=== PATIENT | female | born 1945 | race Caucasian/White ===

== ENCOUNTER 2019-04-10 15:38 | Emergency (ER) | payer MEDICARE, OTHER ==
--- NOTE | 2019-04-10 16:39 | EDM.PDOC ---
ED HPI GENERAL MEDICAL PROBLEM - General Chief Complaint: Eye Problems Stated Complaint: EYE INJURY Time Seen by Provider: 04/10/19 15:50 Source of Information: Reports: Patient History Limitations: Reports: No Limitations - History of Present Illness INITIAL COMMENTS - FREE TEXT/NARRATIVE: Pt. presents to ER from clinic. Pt. states that she tripped at a gas station and fell, stiking the R side of her face on the concrete. She noticed progressive edema and ecchymosis to R orbit and went to [facility] and was evaluated. Pt. was subsequently sent to [facility] who had the patient come to the ER as it was close to closing time at the clinic. Pt. denies any LOC. She denies any neck or back pain. She states that he vision has diminished throughout the day due to swelling to the area. Denies any midface trauma. No obvious oral trauma or malocclusion. She denies and chest trauma. Her only other complaint is that of L anterior shoulder and L knee pain since the fall. Pt. denies any lightheadedness, chest pain, shortness of breath, or other symptoms prior to the fall. It appears to have been a mechanical fall due to tripping. Onset: Today Onset Date: 04/10/19 Location: Reports: Head, Face Quality: Reports: Ache, Throbbing Severity: Moderate Associated Symptoms: Denies: Nausea/Vomiting, Seizure - Related Data Allergies Allergy/AdvReac Type Severity Reaction Status Date / Time No Known Allergies Allergy Verified 04/10/19 15:39 Home Meds: Home Meds Albuterol [Proventil Neb Soln] 2.5 mg IH Q4H PRN 04/10/19 [History] Escitalopram [Lexapro] 10 mg PO BEDTIME 04/10/19 [History] Fluticasone/Salmeterol [Airduo Respiclick 113-14 Mcg] 1 each IH BID 04/10/19 [ History] Tiotropium [Spiriva] 18 mcg INH BID 04/10/19 [History] ED ROS GENERAL - Review of Systems Review Of Systems: See Below Constitutional: Reports: No Symptoms HEENT: Reports: Vision Change (R side). Denies: Nosebleed, Vertigo Respiratory: Reports: No Symptoms Cardiovascular: Reports: No Symptoms Endocrine: Reports: No Symptoms GI/Abdominal: Reports: No Symptoms : Reports: No Symptoms Musculoskeletal: Reports: No Symptoms Skin: Reports: No Symptoms Neurological: Reports: No Symptoms Psychiatric: Reports: No Symptoms Hematologic/Lymphatic: Reports: No Symptoms Immunologic: Reports: No Symptoms ED EXAM GENERAL W FULL EYE - Physical Exam Exam: See Below Exam Limited By: No Limitations General Appearance: Alert, WD/WN, No Apparent Distress Eye Exam: Left Eye: Other (large hematoma and area of edema to R eye. Unable to assess eye movement or globe) Ears: Normal External Exam, Normal Canal, Hearing Grossly Normal, Normal TMs Nose: Normal Inspection, Normal Mucosa, No Blood Throat/Mouth: Normal Inspection, Normal Lips, Normal Teeth, Normal Gums, Normal Oropharynx, Normal Voice, No Airway Compromise Head: Atraumatic, Normocephalic Neck: Normal Inspection, Supple, Non-Tender, Full Range of Motion Respiratory/Chest: No Respiratory Distress, Lungs Clear, Normal Breath Sounds, No Accessory Muscle Use, Chest Non-Tender Cardiovascular: Normal Peripheral Pulses, Regular Rate, Rhythm, No Edema, No Gallop, No JVD, No Murmur, No Rub GI/Abdominal: Normal Bowel Sounds, Soft, Non-Tender, No Organomegaly, No Distention, No Abnormal Bruit, No Mass, Pelvis Stable (Male) Exam: Deferred (Female) Exam: Deferred Rectal (Males) Exam: Deferred Rectal (Female) Exam: Deferred Back Exam: Normal Inspection, Full Range of Motion Extremities: Normal Inspection, Normal Range of Motion, Non-Tender, No Pedal Edema, Normal Capillary Refill Neurological: Alert, Oriented, CN II-XII Intact, Normal Cognition, Normal Gait, Normal Reflexes, No Motor/Sensory Deficits Psychiatric: Normal Affect, Normal Mood Skin Exam: Warm, Dry, Intact, Normal Color, No Rash Lymphatic: No Adenopathy Course - Vital Signs Last Recorded V/S: Last Vital Signs Temp 36.6 C 04/10/19 15:45 Pulse 70 04/10/19 15:45 Resp 20 04/10/19 15:45 BP 134/69 04/10/19 15:45 Pulse Ox 94 L 04/10/19 15:45 - Orders/Labs/Meds Meds: Medications Discontinued Medications Generic Name Dose Route Start Last Admin Trade Name Freq PRN Reason Stop Dose Admin Hydrocodone Bitart/Acetaminophen 1 packet 04/10/19 18:49 04/10/19 18:53 Take Home: Acetam/Hydrocodon 325-5 Mg, 5 Pack PO 04/10/19 18:50 1 packet ONETIME ONE Administration - Radiology Interpretation Free Text/Narrative:: R orbital fracture. CT brain is negative. Radiographs of R shoulder are negative. Departure - Departure Time of Disposition: 19:00 Disposition: Home, Self-Care 01 Clinical Impression: Fracture of orbit - Discharge Information Instructions: Orbital Floor Fracture Without Entrapment, Acetaminophen; Hydrocodone tablets or capsules Referrals: Ericka Carter [Primary Care Provider] - Forms: ED Department Discharge Additional Instructions: Home to rest. It is important that you do not blow your nose, and if you cough or sneeze, try to do it with your mouth open. Do not bear down if at all possible. Dana 5/3235mg 1 every 4-6 hours as needed for pain. Call Dr. Montes's office at [phone] for an appointment in approx. 1 week. Follow-up with Dr. Modi regarding your eye on Wednesday. - Problem List Review Problem List Initiated/Reviewed/Updated: Yes - Assessment/Plan Plan: Home to rest. It is important that you do not blow your nose, and if you cough or sneeze, try to do it with your mouth open. Do not bear down if at all possible. Dana 5/3235mg 1 every 4-6 hours as needed for pain. Call Dr. Montes's office at [phone] for an appointment in approx. 1 week. Follow-up with Dr. Modi regarding your eye on Wednesday.
--- NOTE | 2019-04-10 17:48 | CT ---
[id number] CT/CT Facial Bones WO IV; CT/CT Head WO IV EXAM: CT Head WO IV, CT Facial Bones WO IV CLINICAL DATA: FALL, STRUCK FACE ON CONCRETE. COMPARISON STUDY: None FINDINGS: No intracranial hemorrhage, extra-axial fluid collection, mass, or acute ischemia. No hydrocephalus. No calvarial fracture. CT FACIAL BONES: Acute nondisplaced right medial orbital wall fracture, resulting in extraconal air/gas in the right orbit. Right globe appears intact. Soft tissue laceration over the right orbit with extensive subcutaneous emphysema. He underlying maxillary sinus as well as a traumatic arch and mandible are intact. Pterygoid plates are intact. IMPRESSION: Right orbital soft tissue laceration with extensive subcutaneous emphysema. Nondisplaced right medial orbital wall fracture resulting in a small amount of intraorbital extraconal air/gas. No acute intracranial findings. Matt Peace MD 04/10/19 1935 Thank you for allowing us to participate in the care of your patient.
--- NOTE | 2019-04-10 18:39 | CR ---
[id number] RAD/RAD Shoulder Right 2V Min Exam: RAD Shoulder Right 2V Min Indication:FALL, RIGHT ANTERIOR SHOULDER PAIN. Comparison: No prior imaging for comparison. Discussion: Degenerative spurring along the bursal surface of the acromion. Mild acromioclavicular and glenohumeral osteoarthritis. Degenerative cystic change in the humeral head at the rotator cuff footprint. No acute fracture or dislocation. Diffuse bone demineralization. Impression: No acute findings. Multiple chronic findings are described above. Matt Peace MD 04/10/19 [id number] Thank you for allowing us to participate in the care of your patient.
[2019-04-10] MEDS ORDERED: Take Home: Acetaminophen/HYDROcodone 325-5 MG, 5 Tab Pack PO ONE (18:49)
== END 2019-04-10 18:59 | disposition home or self-care (01) ==
LOC: VM.ED 15:38
DX: S02.31XA Fracture of orbital floor, right side, initial encounter for closed fracture (principal); Z79.899 Other long term (current) drug therapy; W18.39XA Other fall on same level, initial encounter
CPT/HCPCS: 70450; 70486; 73030; 99283; 99284; A9270